=== PATIENT | male | born 1945 | race Caucasian/White ===

== ENCOUNTER 2017-01-10 15:23 | Emergency (ER) | payer MEDICARE ==
[~2017-01-10] VITALS: Ht 170.2 cm; Wt 134.1 kg
[~2017-01-10 15:23] MED LIST: CELE200C PO; DIOV80TA4 PO; DOCU1CAP23 PO; FLAX1300 PO; MULTTAB23 PO; POLY119S PO; PROS5TAB2 PO; VITA10002 PO; [UNRECOGNIZED DRUG - CODE] PO
[2017-01-10 15:27] VITALS: BP 183/73; PULSE 68; RESP 20; TEMP 98.4; O2SAT 96
--- NOTE | 2017-01-10 15:34 | PD ---
HPI Chief Complaint: Laceration/Skin Injury Time Seen by Provider: 15:33 Travel History International Travel<30 days: No Contact w/Intl Traveler<30days: No Traveled to known affect area: No History of Present Illness HPI 71-year-old male presents to ED for evaluation of laceration of the right hand. Patient states laceration occurred while shooting a gun. He states that the slide of the gun came back and pinched his hand between the mechanism. He denies numbness, tingling, weakness, limitations to range of motion of the extremity. He is unsure of his last tetanus immunization. Endorses allergy to contrast media. PFSH Past Medical History Cardiovascular Problems: Yes Diminished Hearing: Yes Hypertension: Yes Reproductive: Yes (BPH) Past Surgical History Appendectomy: Yes Cholecystectomy: Yes Eye Surgery: Yes (B CATARACTS) Tonsillectomy: Yes Social History Alcohol Use: No Tobacco Use: No Substance Use: No Allergies-Medications (Allergen,Severity, Reaction): Coded Allergies: Contrast Media (Verified Allergy, Severe, EDEMA, 12/22/15) Reported Meds & Prescriptions Reported Meds & Active Scripts Active Reported Diflucan (Fluconazole) 100 Mg Tab 100 Mg PO WEEKLY Avodart (Dutasteride) 0.5 Mg Cap 0.5 Mg PO DAILY Finasteride 5 Mg Tab 5 Mg PO DAILY Do not crush. Review of Systems Except as stated in HPI: all other systems reviewed are Neg Physical Exam Narrative GENERAL: Well-nourished, well-developed obese white male in no acute distress. SKIN: Warm and dry. There is a 3 cm linear laceration in the webspace of digits 1 and 2, dorsal aspect, right hand. HEAD: Normocephalic. EYES: No scleral icterus. No injection or drainage. NECK: Supple, trachea midline. No JVD or lymphadenopathy. CARDIOVASCULAR: Regular rate and rhythm without murmurs, gallops, or rubs. RESPIRATORY: Breath sounds equal bilaterally. No accessory muscle use. GASTROINTESTINAL: Abdomen soft, non-tender, nondistended. MUSCULOSKELETAL: No cyanosis, or edema. FOCUSED RIGHT UPPER EXTREMITY EXAM: 2+ radial pulse. No erythema or edema noted. 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 Strong finger to thumb opposition in all digits. Patient maintains flexion, extension of all digits. No snuffbox tenderness. Patient is able to flex, extend, pronate and supinate the wrist without pain. Sensation intact to light touch distally. Cap refill less than 2 seconds. BACK: Nontender without obvious deformity. No CVA tenderness. Data Data Last Documented VS Vital Signs Date Time Temp Pulse Resp B/P Pulse Ox O2 Delivery O2 Flow Rate FiO2 01/10/17 15:27 98.4 68 20 183/73 96 Orders Tetanus/Diphtheria Tox Adult (Tetanus/Di (01/10/17 15:45) Lidocaine 1% Inj (50 Ml) (Xylocaine 1% I (01/10/17 15:45) MDM Medical Decision Making Medical Screen Exam Complete: Yes Emergency Medical Condition: Yes Differential Diagnosis Laceration versus abrasion versus tendinous injury versus other Narrative Course 71-year-old male presents to ED for evaluation of laceration of the right hand. Patient states laceration occurred while shooting a gun. He states that the slide of the gun came back and pinched his hand between the mechanism. He denies numbness, tingling, weakness, limitations to range of motion of the extremity. He is unsure of his last tetanus immunization. Vitals reviewed. Physical exam reveals a 3 cm linear laceration in the webspace of digits 1 and 2 , dorsal aspect, right hand. 2+ radial pulse. No erythema or edema noted. 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 Strong finger to thumb opposition in all digits. Patient maintains flexion, extension of all digits. No snuffbox tenderness. Patient is able to flex, extend, pronate and supinate the wrist without pain. Sensation intact to light touch distally. Cap refill less than 2 seconds. Patient's tetanus immunization was updated. Laceration repair was performed. Please see my procedure note for details. The patient was educated on signs of wound infection. He is instructed to keep the wound clean, dry, covered, suture removal in 10-14 days. He indicated understanding of the instructions and was amenable to plan of care. He is stable and discharged home. Procedures Procedure Narrative LACERATION LOCATION: Interdigital space 1 and 2, dorsal aspect right hand LENGTH: 3cm NUMBER OF STITCHES/STEVE: 4 REPAIR: The area of the laceration was prepped with Betadine and sterilely draped. The laceration was infiltrated with 1% lidocaine. The wound was copiously irrigated and explored without evidence of foreign body, tendon injury or neurovascular injury. The wound was closed using 4-0 Prolene. This was a single layer repair. A sterile dressing was applied. The patient was advised to keep the dressing clean and dry. Patient tolerated the procedure well. Diagnosis Primary Impression: Laceration of right hand Qualified Code: S61.411A - Laceration of right hand, initial encounter Referrals: Primary Care Physician Patient Instructions: General Instructions, Laceration (ED) Additional Instructions: Rest, hydrate. Do not change the dressing for 2 days. You may bathe normally. Do not submerge the wound. After bathing pat of wound dry. Allow the wound to air dry for 10-15 minutes. Apply a thin layer of antibiotic ointment and a clean, dry dressing. Monitor for signs of infection as discussed. Utilize [id number] pain medications, as described on the label, as needed. Suture removal in 10-14 days. Follow-up with your primary care provider. Return to the ED for any urgent or emergent medical condition. Disposition: 01 DISCHARGE HOME Condition: Stable Rosemary Menezes Jan 10, 2017 15:34
[2017-01-10] MEDS ORDERED: DIFL100T PO (15:38)
[2017-01-10] MEDS ORDERED: FINA5TAB2 PO (15:38)
[2017-01-10] MEDS ORDERED: AVOD0.5C PO (15:38)
[2017-01-10] MEDS ORDERED: TETANUS/DIPHTHERIA TOXOID ADULT 0.5 ML VIAL IM ONE (15:45)
[2017-01-10] MEDS ORDERED: LIDOCAINE HCL 1% 50 ML VIAL INFIL ONE (15:45)
== END 2017-01-10 16:30 | disposition home or self-care (01) ==
LOC: PHEFT 15:23
DX: S61.411A Laceration without foreign body of right hand, initial encounter (principal); I10 Essential (primary) hypertension; H91.90 Unspecified hearing loss, unspecified ear; Z23 Encounter for immunization; Z86.79 Personal history of other diseases of the circulatory system; Z87.438 Personal history of other diseases of male genital organs; W34.19XA Accidental malfunction from other specified firearms, initial encounter
CPT/HCPCS: 12002; 90471; 90714